=== PATIENT | female | born 1995 | race African-American/Black ===

== ENCOUNTER 2020-05-21 23:44 | Inpatient (IN) | payer MEDICAID ==
[~2020-05-21] VITALS: Ht 172.7 cm; Wt 105.7 kg
[2020-05-22] VITALS (7 sets, daily range): BP systolic 127–145; BP diastolic 61–92
[2020-05-22] MEDS ORDERED: ONDANSETRON HCL 4MG/2ML INJ IV STA (00:06)
[2020-05-22] MEDS ORDERED: FAMOTIDINE 20MG/2ML VIAL IV STA (00:06)
[2020-05-22] MEDS ORDERED: SODIUM CHLORIDE 0.9% 1,000 ML IV ONE (00:06)
[2020-05-22] MEDS ORDERED: MORPHINE SULFATE 4 MG/ML CPJ (NOT FOR IM USE) IV STA (00:06)
[2020-05-22] MEDS ORDERED: DIATR MEGLU/DIATRIZOATE SOLN 30ML ONE (00:16)
[2020-05-22 00:23] LABS: HEMATOCRIT. 36.4 % (36.0-48.0); HEMOGLOBIN. 11.7 g/dL (12.0-16.0); MEAN CORPUSCULAR HEMOGLOBIN 22.2 pg (28.0-32.0); MEAN PLATELET VOLUME 8.1 fl (7.4-10.4); PLATELET 278 x1000/uL (130-400); RED BLOOD CELL COUNT 5.28 mill/uL (4.2-5.4); RED CELL DISTRIBUTION WIDTH 16.3 % (11.6-14.6)
[2020-05-22 00:33] LABS: CHLORIDE 107 mEq/L (98-107)
[2020-05-22 00:38] LABS: ETHANOL BLOOD < 10 mg/dL; HCG SCREEN NEGATIVE
[2020-05-22 00:51] LABS: CLARITY URINE CLEAR (CLEAR); COLOR URINE YELLOW (YELLOW); KETONES URINE NEGATIVE (NEGATIVE); LEUKOCYTE ESTERASE URINE NEGATIVE (NEGATIVE); NITRITE URINE NEGATIVE (NEGATIVE); OCCULT BLOOD URINE NEGATIVE (NEGATIVE); PH URINE 5.5 (4.5-8.0); PROTEIN URINE NEGATIVE (NEGATIVE); SPECIFIC GRAVITY URINE 1.014 (1.005-1.030); UROBILINOGEN URINE 0.2 E.U./dL (0.2-1.0)
[2020-05-22 01:15] LABS: *AMPHETAMINES SCREEN URINE NEGATIVE (NEGATIVE); *BARBITURATES SCREEN URINE NEGATIVE (NEGATIVE)
[2020-05-22 01:16] LABS: *BENZODIAZEPINES SCREEN URINE NEGATIVE (NEGATIVE); *COCAINE SCREEN URINE NEGATIVE (NEGATIVE); METHADONE URINE SCREEN NEGATIVE (NEGATIVE); OPIATES URINE SCREEN NEGATIVE (NEGATIVE); PHENCYCLIDINE URINE SCREEN NEGATIVE (NEGATIVE)
[2020-05-22 01:17] LABS: CANNABINOID URINE SCREEN PRESUMTIVE POSITIVE (NEGATIVE)
[2020-05-22 01:32] LABS: INR 0.9; PROTHROMBIN TIME 9.9 sec (9.6-11.0)
[2020-05-22] MEDS ORDERED: ALBUTEROL (0.083%) 2.5MG/3ML NEB HHN STA (02:14)
[2020-05-22] MEDS ORDERED: IPRATROPIUM BROMIDE (0.02%) 0.5MG/2.5ML NEB HHN STA (02:14)
[2020-05-22 02:18] LABS: PLATELET ESTIMATE NORMAL
[2020-05-22] MEDS ORDERED: IOHEXOL-300 100 ML BOTTLE ONE (02:38)
[2020-05-22] MEDS: MORPHINE SULFATE 2 MG/ML CPJ (NOT FOR IM USE) IV PRN ×2 (11:04→17:34)
[2020-05-22] MEDS ORDERED: ONDANSETRON HCL 4MG/2ML INJ IV PRN (11:15)
[2020-05-22] MEDS ORDERED: ALBU2.5V13 IH (11:45)
[2020-05-22] MEDS ORDERED: ATROV IH (11:45)
[2020-05-22] MEDS: MESALAMINE 400 MG CAPSULE.DR PO SCH ×2 (12:40→17:28)
[2020-05-22] MEDS: IPRATROPIUM/ALBUTEROL 0.5-3(2.5)MG/3ML NEB HHN PRN ×2 (14:50→21:20)
[2020-05-22] MEDS ORDERED: FAMOTIDINE 20MG TABLET PO SCH (21:00)
[2020-05-23] VITALS: BP 138/72
[2020-05-23] MEDS: MORPHINE SULFATE 2 MG/ML CPJ (NOT FOR IM USE) IV PRN ×2 (00:01→08:58)
[2020-05-23 04:00] VITALS: BP 134/81
[2020-05-23 08:00] VITALS: BP 143/101
[2020-05-23] MEDS: MESALAMINE 400 MG CAPSULE.DR PO SCH (08:56)
[2020-05-23 10:41] VITALS: BP 156/98
[2020-05-23 10:42] VITALS: BP 156/98
== END 2020-05-23 11:21 | disposition home or self-care (01) | DRG 243 ==
LOC: ER 23:44 → 6EST 05-22 00:55 → EDBEDREQ 05-22 00:58 → EDBEDREQTM 05-22 00:58 → ENRESERV 05-22 07:50
PROVIDERS: ADMIT Internal Medicine; ATTEND Internal Medicine
DX: K21.9 Gastro-esophageal reflux disease without esophagitis (principal); K52.9 Noninfective gastroenteritis and colitis, unspecified; J45.909 Unspecified asthma, uncomplicated; K76.0 Fatty (change of) liver, not elsewhere classified; K50.90 Crohn's disease, unspecified, without complications; F12.90 Cannabis use, unspecified, uncomplicated; E66.9 Obesity, unspecified; K29.70 Gastritis, unspecified, without bleeding; K27.9 Peptic ulcer, site unspecified, unspecified as acute or chronic, without hemorrhage or perforation; F17.200 Nicotine dependence, unspecified, uncomplicated; Z98.891 History of uterine scar from previous surgery; Z68.35 Body mass index [BMI] 35.0-35.9, adult; Z90.49 Acquired absence of other specified parts of digestive tract; Z71.3 Dietary counseling and surveillance
CPT/HCPCS: 36415; 74177; 76705; 80053; 80305; 80320; 81003; 84703; 85025; 93005; 94640; 99285; J2270; J2405; J3490; J7030; Q9963; Q9967; G0480